=== PATIENT | male | born 2000 | race Two or more races ===

== ENCOUNTER 2025-07-16 11:15 | Inpatient (IN) | payer OTHER ==
[~2025-07-16] VITALS: Ht 170.2 cm; Wt 63.5 kg
[2025-07-16] MEDS ORDERED: HUMIRA (13:53)
[2025-08-05] MEDS ORDERED: METRONIDAZOLE/SODIUM CHLORIDE 500 MG/100 ML PIGGYBACK IV ONE ×2 (12:53→18:47)
[2025-08-05] MEDS ORDERED: CEFTRIAXONE SODIUM 2,000 MG VIAL ONE (12:53)
[2025-08-05] MEDS ORDERED: HYDROCORTISONE SODIUM SUCC/PF 100 MG VIAL ONE (13:23)
[2025-08-05] MEDS ORDERED: BUPIVACAINE HCL/Mpf 0.5% 10ML VIAL ONE (13:57)
[2025-08-05] MEDS ORDERED: LIDOCAINE HCL 1%/EPINEPHRINE 20ML VIAL IJ ONE (13:57)
[2025-08-05] MEDS ORDERED: SUGAMMADEX SODIUM 200 MG/2 ML VIAL IV ONE (14:33)
[2025-08-05] MEDS ORDERED: OxyCODONE HCL 5 MG TABLET (ROXICODONE) PO PRN (16:15)
[2025-08-05] MEDS ORDERED: ONDANSETRON HCL 2 MG/ML VIAL IV PRN (16:15)
[2025-08-05] MEDS ORDERED: MORPHINE SULFATE 4 MG/ML VIAL IV PRN (16:15)
[2025-08-05] MEDS ORDERED: DEXTROSE 50 % IN WATER 0.5 G/ML DISP.SYRIN IV PRN (16:15)
[2025-08-05] MEDS ORDERED: 0.9 % SODIUM CHLORIDE 1,000 ML IV SCH (16:15)
[2025-08-05] MEDS ORDERED: METRONIDAZOLE/SODIUM CHLORIDE 500 MG/100 ML PIGGYBACK IV SCH (17:00)
[2025-08-05] MEDS ORDERED: GABAPENTIN 300 MG CAPSULE PO SCH (17:00)
[2025-08-05] MEDS ORDERED: HYOSCYAMINE SULFATE 0.125 MG TAB.SUBL SL SCH (17:00)
[2025-08-05] MEDS ORDERED: ACETAMINOPHEN 500 MG GEL..CAP PO SCH (20:00)
[2025-08-05 20:31] LABS: BASO % 0.3 % (0.1-1.2); EOS # 0.00 (0.04-0.54); EOS % 0.0 % (0.7-7.0); LYMPH # 0.53 (1.18-3.74); LYMPH % 2.9 % (19.3-53.1); MEAN PLATELET VOLUME 10.00 fl (9.4-12.4); MONO # 1.46 (0.24-0.82); MONO % 8.0 % (4.7-12.5); NEUT # 16.04 (1.56-6.13); NEUT % 88.4 % (34.0-71.1); RED CELL DISTRIBUTION WIDTH 11.7 % (11.6-14.4)
[2025-08-05 20:57] VITALS: BP 116/63; O2SAT 98
[2025-08-05 21:00] LABS: BUN CREA RATIO 12.0 (7.0-25.0); CREATININE SERUM 0.83 mg/dL (0.70-1.30); GFR 115.85; GLUCOSE FASTING 179.0 mg/dL (65-100); OSMOLALITY SERUM 281.0 MOSM/KG (275-295)
[2025-08-05] MEDS ORDERED: FAMOTIDINE/PF 20 MG/2 ML VIAL IV PUSH SCH (21:00)
[2025-08-06] MEDS ORDERED: HYDROCORTISONE SODIUM SUCC/PF 100 MG VIAL IV SCH
[2025-08-06 08:39] VITALS: BP 124/68; O2SAT 99
[2025-08-06] MEDS ORDERED: HYDROCORTISONE SODIUM SUCC/PF 50 MG/ML ML IV SCH (13:00)
[2025-08-06 13:06] LABS: BASO % 0.3 % (0.1-1.2); EOS # 0.01 (0.04-0.54); EOS % 0.1 % (0.7-7.0); LYMPH # 1.37 (1.18-3.74); LYMPH % 7.9 % (19.3-53.1); MEAN PLATELET VOLUME 9.70 fl (9.4-12.4); MONO # 1.40 (0.24-0.82); MONO % 8.0 % (4.7-12.5); NEUT # 14.51 (1.56-6.13); NEUT % 83.2 % (34.0-71.1); RED CELL DISTRIBUTION WIDTH 11.7 % (11.6-14.4)
[2025-08-06 14:07] LABS: BUN CREA RATIO 9.0 (7.0-25.0); CREATININE SERUM 0.53 mg/dL (0.70-1.30); GFR 194.41; GLUCOSE FASTING 118.0 mg/dL (65-100); OSMOLALITY SERUM 283.0 MOSM/KG (275-295)
[2025-08-06 16:00] VITALS: BP 110/74; O2SAT 99
[2025-08-06] MEDS ORDERED: ENOXAPARIN SODIUM 40 MG/0.4 ML SYRINGE SUBCUTANEO SCH (17:00)
[2025-08-07 01:04] VITALS: BP 109/62; O2SAT 96
[2025-08-07 06:17] LABS: BASO % 0.5 % (0.1-1.2); EOS # 0.01 (0.04-0.54); EOS % 0.1 % (0.7-7.0); LYMPH # 1.32 (1.18-3.74); LYMPH % 11.2 % (19.3-53.1); MEAN PLATELET VOLUME 10.00 fl (9.4-12.4); MONO # 1.05 (0.24-0.82); MONO % 8.9 % (4.7-12.5); NEUT # 9.34 (1.56-6.13); NEUT % 79.0 % (34.0-71.1); RED CELL DISTRIBUTION WIDTH 12.2 % (11.6-14.4)
[2025-08-07 06:51] LABS: BUN CREA RATIO 12.0 (7.0-25.0); CREATININE SERUM 0.6 mg/dL (0.70-1.30); GFR 168.47; GLUCOSE FASTING 99.0 mg/dL (65-100); OSMOLALITY SERUM 285.0 MOSM/KG (275-295)
[2025-08-07 08:00] VITALS: BP 113/73; O2SAT 99
[2025-08-07] MEDS ORDERED: ENOXAPARIN SODIUM 40 MG/0.4 ML SYRINGE SUBCUTANEO SCH (09:00)
[2025-08-07] MEDS ORDERED: POTASSIUM PHOS,M-BASIC-D-BASIC 3 MM/ML VIAL IV ONE (11:00)
[2025-08-07 14:00] VITALS: BP 113/71; O2SAT 98
[2025-08-07] MEDS ORDERED: HYDROCORTISONE SODIUM SUCC/PF 50 MG/ML ML IV SCH (21:00)
[2025-08-08 08:00] VITALS: BP 104/67; O2SAT 99
[2025-08-08] MEDS ORDERED: PANTOPRAZOLE SODIUM 40 MG/VIAL VIAL IV STA (10:52)
[2025-08-08] MEDS ORDERED: HYOSCYAMINE0.125 M1 SL (12:54)
[2025-08-08] MEDS ORDERED: PEPCID AC20 MG PO (12:55)
[2025-08-08] MEDS ORDERED: TRAM1TAB98 PO (12:55)
== END 2025-08-08 14:20 | disposition home or self-care (01) | DRG 331 ==
LOC: SURG 08-05 07:00 → O/R 08-05 11:00 → SURG 08-05 11:15 → O/R 08-05 16:14 → SURG 08-05 17:10
PROVIDERS: Internal Medicine Geriatric Medicine; ADMIT Surgery; ATTEND Surgery
PROC: 0DBB4ZZ Excision of Ileum, Percutaneous Endoscopic Approach (ICD-10-PCS; 2025-08-05)
PROC: 07BC4ZZ Excision of Pelvis Lymphatic, Percutaneous Endoscopic Approach (ICD-10-PCS; 2025-08-05)
PROC: 0DJD8ZZ Inspection of Lower Intestinal Tract, Via Natural or Artificial Opening Endoscopic (ICD-10-PCS; 2025-08-05)
PROC: 0DTK4ZZ Resection of Ascending Colon, Percutaneous Endoscopic Approach (ICD-10-PCS; principal; 2025-08-05 07:00)
DX: K50.112 Crohn's disease of large intestine with intestinal obstruction (principal); Z79.52 Long term (current) use of systemic steroids